=== PATIENT | male | born 1935 | race Asian ===

== ENCOUNTER 2019-08-09 11:16 | Inpatient (IN) | payer OTHER ==
[~2019-08-09] VITALS: Ht 167.6 cm; Wt 77.1 kg
--- NOTE | 2019-08-09 11:25 | NUR ---
[id number] HOME C/O "CHILLS" AND NAUSEA SINCE THIS AM. ZOFRAN ODT GIVEN, pt to bed 7, -sob, nad noted, vss, pending md roberto
[2019-08-09 12:01] LABS: BASOPHILS % (AUTO) 0.7 % (0.0-2.0); HEMATOCRIT 33 % (39-51); HEMOGLOBIN 10.9 g/dL (13.5-17.5); LYMPHOCYTES # (AUTO) 1.7 /CMM (0.8-4.8); MEAN CORPUSCULAR HGB CONC 33 g/dl (31.0-36.0); MEAN CORPUSCULAR VOLUME 97 fL (80-96); MONOCYTES # (AUTO) 0.5 /CMM (0.1-1.30); MONOCYTES % (AUTO) 7.2 % (2.0-12.0); NEUTROPHILS % (AUTO) 57.1 % (43.0-81.0); PLATELET COUNT (AUTO) 149 /CMM (150-450)
[2019-08-09 12:14] LABS: ALANINE AMINOTRANSFERASE 22 U/L (12-78); ALBUMIN 3.9 g/dL (3.4-5.0); ALKALINE PHOSPHATASE 84 U/L (46-116); ASPARTATE AMINOTRANSFERASE 21 U/L (15-37); BILIRUBIN,DIRECT 0.2 mg/dL (0.0-0.2); BILIRUBIN,TOTAL 0.6 mg/dL (0.2-1.0); CALCIUM, SERUM 9.2 mg/dL (8.5-10.1); CARBON DIOXIDE 22 mmol/L (21-32); CHLORIDE 106 mmol/L (98-107); CREATININE 3.2 mg/dL (0.6-1.3); GLUCOSE 110 mg/dL (74-106); POTASSIUM 4.8 mmol/L (3.5-5.1); SODIUM SERUM 140 mmol/L (136-145); UREA NITROGEN, BLOOD 35 mg/dL (7-18)
--- NOTE | 2019-08-09 12:48 | NUR ---
urine collected and sent to lab
[2019-08-09 13:05] LABS: APPEARANCE,URINE Clear (CLEAR); BILIRUBIN,URINE Negative (NEGATIVE); BLOOD, URINE Negative Ery/uL (NEGATIVE); COLOR,URINE Yellow (YELLOW); KETONES,URINE Negative (NEGATIVE); LEUKOCYTE ESTERASE ,URINE Negative (NEGATIVE); NITRITE, URINE Negative (NEGATIVE); PH,URINE 5.5 (5.0-8.0); PROTEIN,URINE Trace mg/dl (NEGATIVE); UGLUCOSE Negative (NEGATIVE); UROBILINOGEN,URINE 0.2 EU/dL (0.2)
[2019-08-09 13:20] LABS: BACTERIA,URINE Rare /HPF (None Seen); RBC,URINE NONE SEEN /HPF (0-2); SQUAMOUS EPITHELIAL CELL,UR Few /HPF (None Seen); WBC,URINE NONE SEEN /HPF (0-3)
[2019-08-09] MEDS ORDERED: CLON0.1T PO (13:24)
[2019-08-09] MEDS ORDERED: APIX2.5T PO (13:24)
[2019-08-09] MEDS ORDERED: DILT60CA PO (13:24)
[2019-08-09] MEDS ORDERED: ATOR40TA PO (13:24)
[2019-08-09] MEDS ORDERED: FINA5TAB11 PO (13:24)
[2019-08-09] MEDS ORDERED: MINO10TA PO (13:24)
[2019-08-09] MEDS ORDERED: LISI40TA4 PO (13:24)
[2019-08-09] MEDS ORDERED: IV NS 0.9% 1,000 ML BAG IV ONE (13:30)
[2019-08-09] MEDS ORDERED: ONDANSETRON HCL/PF 4 MG/2 ML VIAL IV ONE (13:30)
[2019-08-09] MEDS ORDERED: ASPIRIN 81 MG TAB.CHEW PO ONE (13:30)
--- NOTE | 2019-08-09 13:31 | NUR ---
CALLED NURSING SUP FOR TELE BED.
[2019-08-09] MEDS ORDERED: ONDANSETRON HCL/PF 4 MG/2 ML VIAL ONE (13:38)
[2019-08-09] MEDS ORDERED: ASPIRIN 81 MG TAB.CHEW ONE (13:38)
--- NOTE | 2019-08-09 13:51 | NUR ---
NURSING SUP GAVE TELE BED 111-2.
[2019-08-09] MEDS ORDERED: NITROGLYCERIN 0.4 MG/TAB BOTTLE SL PRN (14:30)
--- NOTE | 2019-08-09 14:55 | NUR ---
report given to radha pena for belinda; pt will be transported to 1st floor
[2019-08-09 15:05] VITALS: BP 123/78
--- NOTE | 2019-08-09 15:23 | NUR ---
ARRIVED ON A GURNEY, ACCOMPANIED BY GRANDDAUGHTER, JOSH, FROM WHOM ALL INFO OBTAINED. PALE LOOKING ELDERLY, APPEARED FATIGUED, BUT ALERT, ORIENTED, AND APPROPRIATE. LIVES WITH GRANDDAUGHTER, THE MAIN [employer] REPAIRER. AWAITING VALVE REPLACMENT, BUT TROUBLE WITH INSURANCE, JOSH SAID ON STRICT DIET AT HOME, SECONDARY TO CHRONIC KIDNEY DISEASE. NOW 2D ECHO DONE AT THE BEDSIDE.
[2019-08-09 16:00] VITALS: BP 121/58
[2019-08-09] MEDS: CEFTRIAXONE 1 G in IV D5W 50 ML IV SCH (17:00)
[2019-08-09] MEDS: AZITHROMYCIN 500 MG in IV D5W 250 ML IV SCH (17:00)
[2019-08-09] MEDS: APIXABAN 2.5 MG TABLET PO SCH (17:01)
[2019-08-09] MEDS: CLONIDINE HCL 0.1 MG TABLET PO SCH (17:01)
--- NOTE | 2019-08-09 18:12 | NUR ---
granddaughter at the bedside with the patient when starts eating dinner, unable to finish 1/2 of the tray, stated" when i swallowed , something got stuck, did not go down all the way",, but no problem when drank liquid, or eating pudding. both legs " feel heavy and numb" explained to both the patient if swallowing food , a problem, we will get in touch with the physician change to pureed now, and swallow eval
[2019-08-09 20:00] VITALS: BP 123/49
[2019-08-09] MEDS ORDERED: DILTIAZEM SR 60 MG PO SCH (21:00)
[2019-08-09] MEDS: IV NS 0.9% 1,000 ML IV PRN (21:36)
[2019-08-10] VITALS: BP 101/49
[2019-08-10 04:00] VITALS: BP 142/63
--- NOTE | 2019-08-10 06:45 | NUR ---
rn notes in bed resting comfortably with distress noted. breathing even and unlabored. room air well tolerated. no complaint of pain or discomfort. family at bedside. alert and oriented x 4, verbally able to communicate needs. kept clean and dry. will endorse to nex shift for continuity of care.
--- NOTE | 2019-08-10 07:10 | NUR ---
CHRISTMAS TREE GRADER NOTES RECEIVED PATIENT IN BED ALERT AND AWAKE, ORIENTED X4. NO SOB. HOB ELEVATED. DENIES ANY C/O PAIN NOR DISCOMFORT AT THIS TIME. LEFT AC IV ACCESS INTACT AND PATENT INFUSING NS @ 80 ML/HR MICHEAL WELL. BED IN LOWEST POSITION, LOCKED, BED ALARM ON. CALL LIGHT WITHIN REACH. IN NO APPARENT DISTRESS.
--- NOTE | 2019-08-10 07:15 | NUR ---
BENCH INSPECTOR NOTES ON TELE MONITORING SR 53-60'S.
[2019-08-10 08:00] VITALS: BP_SYST 124; BP_SYST 129; BP_DIAS 49
[2019-08-10] MEDS ORDERED: DILTIAZEM SR 60 MG PO SCH (09:00)
[2019-08-10] MEDS ORDERED: MINOXIDIL (10MG) 10 MG TABLET PO SCH (09:00)
--- NOTE | 2019-08-10 09:45 | NUR ---
MS RN NOTES AWAITING FOR MINOXIDIL FROM PHARMACY. CALLED AND SPOKE TO TIA
[2019-08-10] MEDS: IV NS 0.9% 1,000 ML IV PRN (10:01)
[2019-08-10] MEDS: APIXABAN 2.5 MG TABLET PO SCH ×2 (10:14→17:09)
[2019-08-10] MEDS: ATORVASTATIN 40 MG TABLET PO SCH (10:16)
[2019-08-10] MEDS: DILTIAZEM HCL CD 120 MG PO SCH (10:17)
[2019-08-10] MEDS: FINASTERIDE (5 MG) 5 MG TABLET PO SCH (10:18)
[2019-08-10] MEDS: CLONIDINE HCL 0.1 MG TABLET PO SCH ×3 (10:18→17:00)
[2019-08-10] MEDS ORDERED: MINOXIDIL (2.5MG) 2.5 MG TABLET PO SCH (12:00)
[2019-08-10 14:35] LABS: BASOPHILS % (AUTO) 0.7 % (0.0-2.0); EOSINOPHILS % (AUTO) 14.3 % (0.0-6.0); HEMATOCRIT 27 % (39-51); HEMOGLOBIN 9.1 g/dL (13.5-17.5); LYMPHOCYTES # (AUTO) 1.5 /CMM (0.8-4.8); LYMPHOCYTES % (AUTO) 26.9 % (20.0-44.0); MEAN CORPUSCULAR HGB CONC 34 g/dl (31.0-36.0); MEAN CORPUSCULAR VOLUME 97 fL (80-96); MONOCYTES # (AUTO) 0.4 /CMM (0.1-1.30); MONOCYTES % (AUTO) 7.7 % (2.0-12.0); NEUTROPHILS # (AUTO) 2.8 /CMM (1.8-8.9); NEUTROPHILS % (AUTO) 50.4 % (43.0-81.0); PLATELET COUNT (AUTO) 119 /CMM (150-450); RED BLOOD CELL COUNT(AUTO) 2.78 MIL/uL (4.5-6.0); WHITE BLOOD COUNT (AUTO) 5.6 K/uL (4.3-11.0)
[2019-08-10 15:02] LABS: CALCIUM, SERUM 8.2 mg/dL (8.5-10.1); CARBON DIOXIDE 21 mmol/L (21-32); CHLORIDE 109 mmol/L (98-107); CREATININE 3.2 mg/dL (0.6-1.3); GLUCOSE 109 mg/dL (74-106); MAGNESIUM 2.2 mg/dL (1.8-2.4); PHOSPHORUS 4.1 mg/dL (2.5-4.9); POTASSIUM 5.3 mmol/L (3.5-5.1); SODIUM SERUM 140 mmol/L (136-145); UREA NITROGEN, BLOOD 31 mg/dL (7-18)
[2019-08-10 15:04] LABS: CHOLESTEROL 103 mg/dL (<200); HDL CHOLESTEROL 32 mg/dL (40-60); LDL 66 mg/dL (0-99); TRIGLYCERIDES 57 mg/dL (30-150)
[2019-08-10] MEDS: AZITHROMYCIN 500 MG in IV D5W 250 ML IV SCH (15:58)
[2019-08-10 16:00] VITALS: BP 101/45
[2019-08-10] MEDS: CEFTRIAXONE 1 G in IV D5W 50 ML IV SCH (16:58)
--- NOTE | 2019-08-10 18:42 | NUR ---
MS RN NOTES RELAYED POTASSIUM LEVEL TO WITH ORDER FOR KAYEXALATE 15GM X1 TIME ONLY. NOTED AND CARRIED OUT.
[2019-08-10] MEDS ORDERED: SODIUM POLYSTYRENE SULFONATE 15 G/60 ML BOTTLE PO ONE (19:00)
--- NOTE | 2019-08-10 19:30 | NUR ---
MS RN OPENING NOTES RECEIVED PATIENT FROM MORNING SHIFT, ALERT AND ORIENTED X 3. FAMILY ON BEDSIDE. BREATHING REGULAR AND UNLABORED ON ROOM AIR. LEFT AC G20 IV LINE INTACT AND PATENT, INFUSING WELL WITH NO BLEEDING OR S/S OF INFILTRATION NOTED. BODY ASSESSMENT DONE, SKIN REMAINED INTACT CLEAN AND DRY. NO COMPLAINTS OF PAIN/DISCOMFORT REPORTED OF THE TIME. BED LOW AND LOCKED ON SEMI FOWLERS POSITION. CALL LIGHT IN REACH. WILL CONTINUE TO MONITOR.
--- NOTE | 2019-08-10 19:43 | NUR ---
MS RN NOTES PER FAMILY, PATIENT HAS BEEN ADVISED BY HIS PRIMARY MD NOT TO HAVE ANY INTAKE OF MILK/DAIRY PRODUCTS DUE TO MEDICAL CONDITION.
--- NOTE | 2019-08-10 19:46 | NUR ---
MS RN NOTES PATIENT RESTING COMFORTABLY IN BED, [facility] AT BEDSIDE. NO S/S OF RESPIRATORY DISTRESS. HOB ELEVATED. DENIES ANY C/O PAIN NOR DISCOMFORT AT THIS TIME. AMBULATORY WITH STEADY GAIT. PATIENT C/O TIREDNESS DURING ACTIVITY. LEFT AC IV ACCESS INTACT AND PATENT INFUSING NS @ 80 ML/HR MICHEAL WELL. BED IN LOWEST POSITION, LOCKED, BED ALARM ON. CALL LIGHT WITHIN REACH. IN NO APPARENT DISTRESS.
[2019-08-10 20:00] VITALS: BP 141/62
[2019-08-10 22:00] VITALS: BP 141/62
[2019-08-11] MEDS: IV NS 0.9% 1,000 ML IV PRN (01:57)
[2019-08-11 07:06] LABS: BASOPHILS % (AUTO) 0.5 % (0.0-2.0); EOSINOPHILS % (AUTO) 11.7 % (0.0-6.0); HEMATOCRIT 26 % (39-51); HEMOGLOBIN 8.8 g/dL (13.5-17.5); LYMPHOCYTES # (AUTO) 1.6 /CMM (0.8-4.8); LYMPHOCYTES % (AUTO) 23.9 % (20.0-44.0); MEAN CORPUSCULAR HGB CONC 34 g/dl (31.0-36.0); MEAN CORPUSCULAR VOLUME 97 fL (80-96); MONOCYTES # (AUTO) 0.6 /CMM (0.1-1.30); MONOCYTES % (AUTO) 9.1 % (2.0-12.0); NEUTROPHILS # (AUTO) 3.6 /CMM (1.8-8.9); NEUTROPHILS % (AUTO) 54.8 % (43.0-81.0); PLATELET COUNT (AUTO) 107 /CMM (150-450); RED BLOOD CELL COUNT(AUTO) 2.65 MIL/uL (4.5-6.0); WHITE BLOOD COUNT (AUTO) 6.6 K/uL (4.3-11.0)
[2019-08-11 07:30] LABS: ALANINE AMINOTRANSFERASE 15 U/L (12-78); ALBUMIN 2.7 g/dL (3.4-5.0); ALKALINE PHOSPHATASE 61 U/L (46-116); ASPARTATE AMINOTRANSFERASE 16 U/L (15-37); BILIRUBIN,TOTAL 0.4 mg/dL (0.2-1.0); CALCIUM, SERUM 8.1 mg/dL (8.5-10.1); CARBON DIOXIDE 22 mmol/L (21-32); CHLORIDE 112 mmol/L (98-107); CREATININE 2.9 mg/dL (0.6-1.3); GLUCOSE 86 mg/dL (74-106); MAGNESIUM 2.2 mg/dL (1.8-2.4); PHOSPHORUS 4.3 mg/dL (2.5-4.9); POTASSIUM 4.9 mmol/L (3.5-5.1); SODIUM SERUM 143 mmol/L (136-145); UREA NITROGEN, BLOOD 31 mg/dL (7-18)
[2019-08-11 07:37] LABS: CREATINE KINASE, TOTAL 50 U/L (39-308)
--- NOTE | 2019-08-11 07:50 | NUR ---
rn opening notes Patient received on room air at this time, a.io x4 and denies pain. NS @ 80 ml per hour. Bed at the lowest setting, call light within reach, side rails up x2.
[2019-08-11 08:00] VITALS: BP 155/61
[2019-08-11] MEDS: ATORVASTATIN 40 MG TABLET PO SCH (08:23)
[2019-08-11] MEDS: FINASTERIDE (5 MG) 5 MG TABLET PO SCH (08:23)
[2019-08-11] MEDS: CLONIDINE HCL 0.1 MG TABLET PO SCH (08:23)
[2019-08-11] MEDS: APIXABAN 2.5 MG TABLET PO SCH (08:27)
[2019-08-11] MEDS ORDERED: DIATR MEGLU/DIATRIZOATE SODIUM 120 ML BOTTLE (GASTROGRAPHIN) ONE (09:15)
[2019-08-11] MEDS ORDERED: BARIUM SULFATE 98% 135 ML SUSP.RECON PO ONE (09:16)
[2019-08-11 10:00] VITALS: BP 155/61
[2019-08-11 10:43] VITALS: BP 115/60
[2019-08-11] MEDS: DILTIAZEM HCL CD 120 MG PO SCH (10:43)
--- NOTE | 2019-08-11 13:05 | NUR ---
rn notes Patient discharged at this time. No sob noted, vital signs stable, patient denies pain at this time. No chest pain. Patient has all belonging with him. D/C papers are signed and with patient. Patient to be driven by family member in their private car. Patient has $530 of licea, all belongings and his cellphone with him at this time.
[2019-08-12 06:06] LABS: PTH, INTACT 33 pg/mL (15-65)
[2019-08-12 12:10] LABS: *SPE A/G RATIO 1.1 (0.7-1.7); *SPE ALBUMIN 2.9 g/dL (2.9-4.4); *SPE ALPHA-1-GLOBULIN 0.2 g/dL (0.0-0.4); *SPE ALPHA-2-GLOBULIN 0.7 g/dL (0.4-1.0); *SPE BETA GLOBULIN 0.7 g/dL (0.7-1.3); *SPE GLOBULIN, TOTAL 2.7 g/dL (2.2-3.9); *SPE M-SPIKE Not Observed g/dL (Not Observed); *SPEGAMMA GLOBULIN 1.1 g/dL (0.4-1.8)
== END 2019-08-11 11:00 | disposition home or self-care (01) | DRG 200 ==
LOC: ER 11:17 → TELE1 14:02 → MEDSG1 08-10 08:42
PROVIDERS: ADMIT Internal Medicine; ATTEND Internal Medicine
DX: I35.0 Nonrheumatic aortic (valve) stenosis (principal); I21.4 Non-ST elevation (NSTEMI) myocardial infarction; N17.0 Acute kidney failure with tubular necrosis; I13.0 Hypertensive heart and chronic kidney disease with heart failure and stage 1 through stage 4 chronic kidney disease, or unspecified chronic kidney disease; I25.10 Atherosclerotic heart disease of native coronary artery without angina pectoris; N18.4 Chronic kidney disease, stage 4 (severe); E78.5 Hyperlipidemia, unspecified; D63.8 Anemia in other chronic diseases classified elsewhere; Z79.899 Other long term (current) drug therapy; I48.0 Paroxysmal atrial fibrillation; Z87.891 Personal history of nicotine dependence; Z79.01 Long term (current) use of anticoagulants; I50.9 Heart failure, unspecified
CPT/HCPCS: 36415; 71045-TC; 74230-TC; 76770-TC; 80048-TC; 80053-TC; 80061-TC; 80076-TC; 81000-TC; 82550-TC; 83735-TC; 83970; 84100-TC; 84155; 84165; 84484-TC; 85025-TC; 87081-TC; 92611-TC; 93307-TC; G0378; J0456; J0696; J2405; J7030; J7060; Q9963